=== PATIENT | female | born 2000 | race Caucasian/White ===

== ENCOUNTER 2024-08-04 11:12 | Emergency (ER) | payer SELFPAY ==
[~2024-08-04] VITALS: Ht 152.4 cm; Wt 60.0 kg
[2024-08-04 11:24] VITALS: TEMP 99.3
[2024-08-04] MEDS ORDERED: OMNICEF 300MG300 MG PO (11:55)
[2024-08-04] MEDS ORDERED: Ketorolac 60 MG/2 ML VIAL IM ONE (12:00)
[2024-08-04] MEDS ORDERED: dexAMETHasone 10 MG/ML VIAL IM ONE (12:00)
[2024-08-04 12:29] VITALS: BP 111/74; PULSE 95
== END 2024-08-04 12:32 | disposition home or self-care (01) ==
LOC: COL.ER 11:12
DX: J02.8 Acute pharyngitis due to other specified organisms (principal); Z88.0 Allergy status to penicillin
CPT/HCPCS: J1100; J1885